=== PATIENT | female | born 2000 | race Caucasian/White ===

== ENCOUNTER 2021-07-23 19:20 | Emergency (ER) | payer MEDICAID ==
[~2021-07-23] VITALS: Ht 162.5 cm; Wt 85.9 kg
[2021-07-23] MEDS ORDERED: ONDANSETRON 4 MG/2 ML (SDV) Z0FRAN IVP ONE ×2 (19:30→20:45)
[2021-07-23] MEDS ORDERED: NS IV 1000 ML 1,000 ML IV SCH (19:30)
[2021-07-23 20:09] LABS: BILIRUBIN,URINE NEGATIVE (NEGATIVE); CLARITY,URINE CLOUDY; COLOR,URINE YELLOW; GLUCOSE, URINE (UA) NEGATIVE (NEGATIVE); KETONES,URINE NEGATIVE (NEGATIVE); LEUKOCYTE ESTERASE ,URINE NEGATIVE (NEGATIVE); NITRITE,URINE NEGATIVE (NEGATIVE); PH,URINE 5.5 (5-9); PROTEIN,URINE 1+ (NEGATIVE)
[2021-07-23 20:15] LABS: BASOPHILS % (AUTO) 1 % (0-10); EOSINOPHILS % (AUTO) 0 % (0-10); HEMATOCRIT 49 % (35-52); HEMOGLOBIN 16.4 g/dL (11.5-16.0); LYMPHOCYTES % (AUTO) 32 % (12-44); MEAN CORPUSCULAR HEMOGLOBIN 30 pg (25-34); MEAN CORPUSCULAR HGB CONC 33 g/dL (32-36); MEAN CORPUSCULAR VOLUME 89 fL (80-99); MEAN PLATELET VOLUME 10.3 fL (9.0-12.2); MONOCYTES % (AUTO) 12 % (0-12); NEUTROPHILS % (AUTO) 55 % (42-75); PLATELET COUNT 349 10^3/uL (130-400)
[2021-07-23 20:16] LABS: LYMPHOCYTES # (AUTO) 1.9 X 10^3 (1.0-4.0); MONOCYTES # (AUTO) 0.7 X 10^3 (0.0-1.0); NEUTROPHILS # (AUTO) 3.3 X 10^3 (1.8-7.8)
[2021-07-23 20:18] LABS: BACTERIA,URINE NEGATIVE /HPF; RBC,URINE RARE /HPF; WBC,URINE RARE /HPF
[2021-07-23 20:19] LABS: AMORPHOUS SEDIMENT,UR LARGE AMOR URATES /LPF
[2021-07-23 20:21] LABS: ALANINE AMINOTRANSFERASE 39 U/L (0-55); ALKALINE PHOSPHATASE 100 U/L (40-136); BILIRUBIN,TOTAL 0.3 MG/DL (0.1-1.0); BUN/CREATININE RATIO 12; CALCIUM 9.8 MG/DL (8.5-10.1); CARBON DIOXIDE 16 MMOL/L (21-32); CHLORIDE 114 MMOL/L (98-107); CREATININE SERUM 0.91 MG/DL (0.60-1.30); GFR ESTIMATED 80; GLUCOSE 99 MG/DL (70-105); POTASSIUM 3.7 MMOL/L (3.6-5.0); SODIUM 146 MMOL/L (135-145)
[2021-07-23 20:22] LABS: ALBUMIN 4.8 GM/DL (3.2-4.5); LIPASE 27 U/L (8-78); TOTAL PROTEIN 8.8 GM/DL (6.4-8.2)
[2021-07-23] MEDS ORDERED: LACTATED RINGERS 1,000 ML IV SCH (20:45)
[2021-07-23] MEDS ORDERED: LOPERAMIDE 2 MG (IMODIUM) TABLET PO ONE (20:45)
--- NOTE | 2021-07-23 21:07 | ED General ---
General Chief Complaint: Abdominal/GI Problems Stated Complaint: N/V/D,DIZZY Nursing Triage Note: Patient states that she has been feeling ill since 07/19/21. Patient has been having nausea/vomiting/diarrhea. Patient went to [facility] on 07/21/21. Patient was tested for Covid and the flu, tested negative for both. Patient was given a prescription for zofran. Patient reports very little relief with the zofran. Patient also reports that she hasn't been urinating normally. Patient report that she has only been able to dribble since she had gotten sick last thursday. History of Present Illness Date Seen by Provider: Jul 23, 2021 Time Seen by Provider: 21:02 Initial Comments Patient presenting to emergency department for evaluation of nausea vomiting diarrhea and feeling lightheaded and she says she has had decreased urine output. Patient says all this happened Thursday night and she has been having the symptoms for the past 3 days. She was seen at an urgent care 2 days ago and started on ODT Zofran which helped initially however she says it is not helping the vomiting at this point. She says the emesis is nonbloody nonbilious and happens at least 5 times a day and the diarrhea is watery and happens at least 10 times a day. She denies any blood in her stool and she also denies any recent antibiotic use foreign travel or chemotherapy. She says she has had no fevers or chills. She did test negative for Covid and influenza on the . She is in no acute distress with normal vital signs other than mild tachycardia. Allergies and Home Medications Allergies Coded Allergies: No Known Drug Allergies (Unverified , 07/23/21) Patient Home Medication List Home Medication List Reviewed: Yes Review of Systems Review of Systems Constitutional: dizziness EENTM: no symptoms reported Respiratory: no symptoms reported Cardiovascular: no symptoms reported Gastrointestinal: diarrhea, nausea, vomiting Genitourinary: decreased output Musculoskeletal: no symptoms reported Skin: no symptoms reported Psychiatric/Neurological: No Symptoms Reported All Other Systems Reviewed Negative Unless Noted: Yes Past Tpzsvhm-Iirypr-Afdzfp Hx Patient Social History Tobacco Use?: No Substance use?: No Alcohol Use?: No Pt feels they are or have been: No Immunizations Up To Date Second COVID19 Vaccination Claude: November COVID19 Vaccine Fitness Coordinator: Modernrichelle Physical Exam Vital Signs Vital Signs - First Documented 07/23/21 19:24 Temp 36.6 Pulse 103 Resp 16 B/P (MAP) 131/98 (109) Pulse Ox 99 O2 Delivery Room Air Capillary Refill : Less Than 3 Seconds Height, Weight, BMI Height: '" Weight: lbs. oz. kg; 32.00 BMI Method: General Appearance: No Apparent Distress, WD/WN HEENT: PERRL/EOMI Neck: Supple Respiratory: Lungs Clear, No Respiratory Distress Cardiovascular: Tachycardia Gastrointestinal: Non Tender, Soft Back: Normal Inspection Extremity: Normal Capillary Refill Neurologic/Psychiatric: Alert, Oriented x3 Skin: Warm/Dry Progress/Results/Core Measures Suspected Sepsis SIRS Temperature: Pulse: 103 Respiratory Rate: 16 Laboratory Tests 07/23/21 19:34: White Blood Count 6.0 Blood Pressure 131 /98 Mean: 109 Laboratory Tests 07/23/21 19:34: Creatinine 0.91, Platelet Count 349, Total Bilirubin 0.3 Results/Orders Lab Results Laboratory Tests Test 07/23/21 19:25 07/23/21 19:34 Range/Units Urine Color YELLOW Urine Clarity CLOUDY Urine pH 5.5 5-9 Urine Specific [place] >=1.030 1.016-1.022 Urine Protein 1+ H NEGATIVE Urine Glucose (UA) NEGATIVE NEGATIVE Urine Ketones NEGATIVE NEGATIVE Urine Nitrite NEGATIVE NEGATIVE Urine Bilirubin NEGATIVE NEGATIVE Urine Urobilinogen 0.2 < = 1.0 MG/DL Urine Leukocyte Esterase NEGATIVE NEGATIVE Urine RBC (Auto) NEGATIVE NEGATIVE Urine RBC RARE /HPF Urine WBC RARE /HPF Urine Squamous Epithelial Cells 5-10 /HPF Urine Crystals PRESENT H /LPF Urine Amorphous Sediment LARGE [place]NE URATES H /LPF Urine Bacteria NEGATIVE /HPF Urine Casts NONE /LPF Urine Mucus SMALL H /LPF Urine Culture Indicated NO Urine Test NEGATIVE NEGATIVE White Blood Count 6.0 4.3-11.0 10^3/uL Red Blood Count 5.55 H 3.80-5.11 10^6/uL Hemoglobin 16.4 H 11.5-16.0 g/dL Hematocrit 49 35-52 % Mean Corpuscular Volume 89 80-99 fL Mean Corpuscular Hemoglobin 30 25-34 pg Mean Corpuscular Hemoglobin Concent 33 32-36 g/dL Red Cell Distribution Width 12.2 10.0-14.5 % Platelet Count 349 130-400 10^3/uL Mean Platelet Volume 10.3 9.0-12.2 fL Neutrophils (%) (Auto) 55 42-75 % Lymphocytes (%) (Auto) 32 12-44 % Monocytes (%) (Auto) 12 0-12 % Eosinophils (%) (Auto) 0 0-10 % Basophils (%) (Auto) 1 0-10 % Neutrophils # (Auto) 3.3 1.8-7.8 X 10^3 Lymphocytes # (Auto) 1.9 1.0-4.0 X 10^3 Monocytes # (Auto) 0.7 0.0-1.0 X 10^3 Eosinophils # (Auto) 0.0 0.0-0.3 10^3/uL Basophils # (Auto) 0.0 0.0-0.1 10^3/uL Sodium Level 146 H 135-145 MMOL/L Potassium Level 3.7 3.6-5.0 MMOL/L Chloride Level 114 H 98-107 MMOL/L Carbon Dioxide Level 16 L 21-32 MMOL/L Anion Gap 16 H 5-14 MMOL/L Blood Urea Nitrogen 11 7-18 MG/DL Creatinine 0.91 0.60-1.30 MG/DL Estimat Glomerular Filtration Rate 80 BUN/Creatinine Ratio 12 Glucose Level 99 70-105 MG/DL Calcium Level 9.8 8.5-10.1 MG/DL Corrected Calcium 8.5-10.1 MG/DL Total Bilirubin 0.3 0.1-1.0 MG/DL Aspartate Amino Transf (AST/SGOT) 30 5-34 U/L Alanine Aminotransferase (ALT/SGPT) 39 0-55 U/L Alkaline Phosphatase 100 40-136 U/L Total Protein 8.8 H 6.4-8.2 GM/DL Albumin 4.8 H 3.2-4.5 GM/DL Lipase 27 8-78 U/L My Orders Orders - RAFIQ LEONARD DO Iv/Invasive Line Insertion .IV start (07/23/21 19:28) Comprehensive Metabolic Panel (07/23/21 19:28) Cbc With Automated Diff (07/23/21 19:28) Lipase (07/23/21 19:28) Ua Culture If Indicated (07/23/21 19:) Hcg,Qualitative Urine (07/23/21 19:) Ondansetron Injection (Zofran Injectio (07/23/21 19:30) Ns Iv 1000 Ml (Sodium Chloride 0.9%) (07/23/21 19:30) C Difficile Ag + Toxin A/B. (07/23/21 19:39) Isolation Central Supply Req (07/23/21 19:39) Parasite Scrn Stool Giard Cryp (07/23/21 19:39) Lactated Ringers (Lr 1000 Ml Iv Solution (07/23/21 20:45) Loperamide Tablet (Imodium Tablet) (07/23/21 20:45) Ondansetron Injection (Zofran Injectio (07/23/21 20:45) Medications Given in ED Current Medications Medications Dose Ordered Sig/Crystal Route Start Time Stop Time Status Last Admin Dose Admin Loperamide HCl 4 mg ONCE ONCE PO 07/23/21 20:45 07/23/21 20:46 DC 07/23/21 20:53 4 MG Ondansetron HCl 4 mg ONCE ONCE IVP 07/23/21 19:30 07/23/21 19:31 DC 07/23/21 19:40 4 MG Ondansetron HCl 4 mg ONCE ONCE IVP 07/23/21 20:45 07/23/21 20:46 DC 07/23/21 20:53 4 MG Vital Signs/I&O 07/23/21 19:24 Temp 36.6 Pulse 103 Resp 16 B/P (MAP) 131/98 (109) Pulse Ox 99 O2 Delivery Room Air Capillary Refill : Less Than 3 Seconds Blood Pressure Mean: 109 Progress Note : Progress Note Patient does have signs of dehydration based off her chemistry panel as she has decreased CO2 and increased anion gap. Her white blood cell count is normal and she has benign initial and repeat abdominal exams and I do not suspect surgical abdomen or surgical causes such as appendicitis. Her heart rate improved to 80 after IV fluids and she says her nausea is resolved and she was able to drink apple juice with no difficulty. She was able to provide stool sample so this will be sent to [facility] for further testing. Given she appears well with normal vital signs benign physical exam work-up she will be discharged with Phenergan for her nausea in addition to Imodium for her diarrhea told to follow with a primary care provider within 2 to 3 days for recheck and come back to emergency department sooner with worsening pain fevers vomiting or other general concerns. Patient aware and agreeable with plan and verbalized understanding the above instructions. Departure Impression Primary Impression: Nausea and vomiting Qualified Codes: R11.2 - Nausea with vomiting, unspecified Additional Impressions: Diarrhea Qualified Codes: R19.7 - Diarrhea, unspecified Dehydration Disposition: 01 HOME, SELF-CARE Condition: Stable Departure-Patient Inst. Referrals: MARIA EUGEINA WINTER MD (PCP/Family) Primary Care Physician Patient Instructions: Viral Gastroenteritis, Adult (DC) Add. Discharge Instructions: Drink plenty of fluids. Tylenol and ibuprofen for pain. Follow with PCP later this week for recheck. Come back with any concerns. Thank you! All discharge instructions reviewed with patient and/or family. Voiced understanding. Scripts Promethazine HCl (Promethazine Suppository) 25 Mg Supp.rect 25 MG RC Q6H PRN for NAUSEA/VOMITING-2ND LINE, #14 SUPP.RECT Prov: RAFIQ LEONARD DO 07/23/21 Promethazine HCl (Promethazine Tablet) 25 Mg Tablet 25 MG PO Q6H PRN for NAUSEA/VOMITING, #14 TAB Prov: RAFIQ LEONARD DO 07/23/21 Loperamide HCl (Loperamide) 2 Mg Tablet 2 MG PO Q6H PRN for DIARRHEA, #14 TAB Prov: RAFIQ LEONARD DO 07/23/21 RAFIQ LEONARD DO Jul 23, 2021 21:07
[2021-07-23] MEDS ORDERED: PROM25SU44 RC (21:09)
[2021-07-23] MEDS ORDERED: LOPE2TAB34 PO (21:09)
[2021-07-23] MEDS ORDERED: PROM25TA14 PO (21:09)
[2021-07-23 21:22] VITALS: BP 124/92
== END 2021-07-23 21:22 | disposition home or self-care (01) ==
LOC: ER FS 19:21
DX: R11.2 Nausea with vomiting, unspecified (principal); R19.7 Diarrhea, unspecified; E86.0 Dehydration; R00.0 Tachycardia, unspecified
CPT/HCPCS: 36415; 80053; 81000; 83690; 84703; 85025; 87324; 87328; 87329; 87449

== ENCOUNTER 2021-09-18 17:00 | Emergency (ER) | payer MEDICAID ==
[~2021-09-18] VITALS: Ht 162 cm; Wt 85.0 kg
[~2021-09-18 17:00] MED LIST: LOPE2TAB34 PO; PROM25SU44 RC; PROM25TA14 PO
[2021-09-18] MEDS ORDERED: KETOROLAC 30 MG/ML VIAL IVP STA (17:19)
--- NOTE | 2021-09-18 17:29 | ED General ---
General Chief Complaint: Fever-Adult/Adol Stated Complaint: HEADACHE,NAUSEA,BODY ACHES,DIZZINESS,CHILLS Source of Information: Patient History of Present Illness Date Seen by Provider: Sep 18, 2021 Time Seen by Provider: 17:06 Initial Comments 21-year-old female presenting with complaints of fever, cough, headache, chills, shortness of breath since Thursday. She took a home test for COVID that was negative. She has not taken anything for pain or fever. She was at work on Thursday at [employer] when her symptoms started. She started with just a headache on Thursday and then proceeded to get fever chills, cough, shortness of breath on Thursday. She did get a Depo-Provera shot on Thursday. She presents to the emergency department today because she has been sleeping most of the day and was feeling dizzy and lightheaded when she stood up. She denies having any nausea, vomiting, diarrhea, pain with urination, blood in her urine, change in her vision, sore throat, abdominal pain. She has no definite ill contact but works at [employer] so is around public and Covid and Influenza have both been prominent in the community recently. Timing/Duration: 2-3 Days Severity: Moderate Modifying Factors: improves with Rest (helps some and been sleeping most of today) Associated Systoms: No Chest Pain; Cough; No Diaphoresis; Fever/Chills, Headaches, Loss of Appetite, Malaise; No Nausea/Vomiting, No Rash, No Seizure; Shortness of Air; No Syncope; Weakness (generalized weakness) Allergies and Home Medications Allergies Coded Allergies: No Known Drug Allergies (Unverified , 07/23/21) Patient Home Medication List Home Medication List Reviewed: Yes Loperamide HCl (Loperamide) 2 Mg Tablet, 2 MG PO Q6H PRN for DIARRHEA Prescribed by: RAFIQ LEONARD on 07/23/212108 Promethazine HCl (Promethazine Tablet) 25 Mg Tablet, 25 MG PO Q6H PRN for NAUSEA/VOMITING Prescribed by: RAFIQ LEONARD on 07/23/212108 Promethazine HCl (Promethazine Suppository) 25 Mg Supp.rect, 25 MG RC Q6H PRN for NAUSEA/VOMITING-2ND LINE Prescribed by: RAFIQ LEONARD on 11/23/21 2109 Review of Systems Review of Systems Constitutional: see HPI EENTM: nose congestion; No epistaxis, No throat pain Respiratory: see HPI, cough; No hemoptysis; short of breath; No stridor, No wheezing Cardiovascular: No chest pain; palpitations Gastrointestinal: No constipation, No diarrhea, No nausea, No vomiting Genitourinary: No dysuria, No frequency : No Musculoskeletal: muscle pain (generalized body aches) Skin: No rash Psychiatric/Neurological: Headache Hematologic/Lymphatic: Denies Blood Clots Past Vdelcki-Dffbal-Sanpaj Hx Patient Social History Tobacco Use?: No Use of E-Cig and/or Vaping dev: No Substance use?: No Alcohol Use?: No Immunizations Up To Date Second COVID19 Vaccination Claude: November Past Medical History Surgeries: No Respiratory: No Cardiac: No Neurological: No : No Genitourinary: No Gastrointestinal: No Musculoskeletal: No Endocrine: No HEENT: No Cancer: No Psychosocial: No Physical Exam Vital Signs Vital Signs - First Documented 09/18/21 17:16 Temp 36.2 Pulse 124 Resp 18 B/P (MAP) 125/84 (98) O2 Delivery Room Air Capillary Refill : Height, Weight, BMI Height: '" Weight: lbs. oz. kg; 32.00 BMI Method: General Appearance: No Apparent Distress, WD/WN HEENT: PERRL/EOMI, Normal ENT Inspection; No Moist Mucous Membranes (slightly dry mucous membranes) Neck: Full Range of Motion, Normal Inspection, Non Tender, Supple Respiratory: Chest Non Tender, Lungs Clear, Normal Breath Sounds, No Accessory Muscle Use, No Respiratory Distress Cardiovascular: Normal Peripheral Pulses, Tachycardia Gastrointestinal: Normal Bowel Sounds, No Pulsatile Mass, Non Tender, Soft Rectal: Deferred Extremity: Normal Capillary Refill, Normal Inspection, No Calf Tenderness, No Pedal Edema Neurologic/Psychiatric: Alert, Oriented x3, curriculum development manager II-XII Norm as Tested Skin: Normal Color, Warm/Dry Focused Exam Lactate Level 09/18/21 17:40: Lactic Acid Level 1.41 Lactic Acid Level Laboratory Tests Test 09/18/21 17:40 Lactic Acid Level 1.41 MMOL/L (0.50-2.00) Progress/Results/Core Measures Suspected Sepsis SIRS Temperature: Pulse: 124 Respiratory Rate: 18 Laboratory Tests 09/18/21 17:13: White Blood Count 2.8L Blood Pressure 125 /84 Mean: 98 1/19/22 17:40: Lactic Acid Level 1.41 Laboratory Tests 09/18/21 17:13: Creatinine 0.74, INR Comment 0.9, Platelet Count 204, Total Bilirubin 0.3 Results/Orders Lab Results Laboratory Tests Test 09/18/21 17:13 09/18/21 17:40 Range/Units White Blood Count 2.8 L 4.3-11.0 10^3/uL Red Blood Count 5.15 H 3.80-5.11 10^6/uL Hemoglobin 14.9 11.5-16.0 g/dL Hematocrit 45 35-52 % Mean Corpuscular Volume 88 80-99 fL Mean Corpuscular Hemoglobin 29 25-34 pg Mean Corpuscular Hemoglobin Concent 33 32-36 g/dL Red Cell Distribution Width 12.9 10.0-14.5 % Platelet Count 204 130-400 10^3/uL Mean Platelet Volume 11.0 9.0-12.2 fL Neutrophils (%) (Auto) 64 42-75 % Lymphocytes (%) (Auto) 17 12-44 % Monocytes (%) (Auto) 18 H 0-12 % Eosinophils (%) (Auto) 0 0-10 % Basophils (%) (Auto) 1 0-10 % Neutrophils # (Auto) 1.8 1.8-7.8 X 10^3 Lymphocytes # (Auto) 0.5 L 1.0-4.0 X 10^3 Monocytes # (Auto) 0.5 0.0-1.0 X 10^3 Eosinophils # (Auto) 0.0 0.0-0.3 10^3/uL Basophils # (Auto) 0.0 0.0-0.1 10^3/uL Neutrophils % (Manual) 34 % Lymphocytes % (Manual) 4 % Monocytes % (Manual) 20 % Eosinophils % (Manual) 0 % Basophils % (Manual) 0 % Band Neutrophils 34 % Atypical Lymphocytes 8 % Platelet Estimate NORMAL Blood Morphology Comment NORMAL Prothrombin Time 12.9 12.2-14.7 SEC INR Comment 0.9 0.8-1.4 Activated Partial Thromboplast Time 35 24-35 SEC Sodium Level 138 135-145 MMOL/L Potassium Level 3.7 3.6-5.0 MMOL/L Chloride Level 103 98-107 MMOL/L Carbon Dioxide Level 20 L 21-32 MMOL/L Anion Gap 15 H 5-14 MMOL/L Blood Urea Nitrogen 10 7-18 MG/DL Creatinine 0.74 0.60-1.30 MG/DL Estimat Glomerular Filtration Rate 119 BUN/Creatinine Ratio 14 Glucose Level 110 H 70-105 MG/DL Calcium Level 9.0 8.5-10.1 MG/DL Corrected Calcium 8.5-10.1 MG/DL Total Bilirubin 0.3 0.1-1.0 MG/DL Aspartate Amino Transf (AST/SGOT) 25 5-34 U/L Alanine Aminotransferase (ALT/SGPT) 23 0-55 U/L Alkaline Phosphatase 103 40-136 U/L Troponin I < 0.30 <0.30 NG/ML C-Reactive Protein 0.44 <0.50 MG/DL Total Protein 7.8 6.4-8.2 GM/DL Albumin 4.6 H 3.2-4.5 GM/DL Serum Test, Qualitative NEGATIVE NEGATIVE Influenza Type A Antigen NEGATIVE NEGATIVE Influenza Type B Antigen NEGATIVE NEGATIVE Lactic Acid Level 1.41 0.50-2.00 MMOL/L My Orders Orders - SOPHIA THOMPSON MD Monitor-Rhythm Ecg Trace Only (09/18/21 17:19) Ed Iv/Invasive Line Start (09/18/21 17:19) Cbc With Automated Diff (09/18/21 17:19) Comprehensive Metabolic Panel (09/18/21 17:19) Crp Fs (09/18/21 17:19) Troponin I Fs (09/18/21 17:19) Protime With Inr (09/18/21 17:19) Partial Thromboplastin Time (09/18/21 17:19) Ekg Tracing (09/18/21 17:19) Ns Iv 1000 Ml (Sodium Chloride 0.9%) (09/18/21 17:30) Acetaminophen Tablet/Caplet (Tylenol T (09/18/21 17:30) Ketorolac Injection (Toradol Injection) (09/18/21 17:19) Blood Culture (09/18/21 17:19) Chest 1 View Ap/Pa Only (09/18/21 17:19) Hcg,Qualitative Serum (09/18/21 17:19) Influenza A & B Antigens (09/18/21 17:19) Coronavirus Sars-Cov-2 So 2018 (09/18/21 17:19) Lactic Acid Analyzer (09/18/21 17:19) Ketorolac Injection (Toradol Injection) (09/18/21 17:33) Manual Differential (09/18/21 17:13) Orthostatic Vital Signs (Adult (09/18/21 18:34) Medications Given in ED Current Medications Medications Dose Ordered Sig/Crystal Route Start Time Stop Time Status Last Admin Dose Admin Acetaminophen 650 mg ONCE ONCE PO 09/18/21 17:30 09/18/21 17:31 DC 09/18/21 17:41 650 MG Vital Signs/I&O 09/18/21 09/18/21 17:16 18:43 Temp 36.2 Pulse 124 93 Resp 18 B/P (MAP) 125/84 (98) 120/72 (88) O2 Delivery Room Air Capillary Refill : Blood Pressure Mean: 98 Progress Note #1: Progress Note Obtain labs and blood cultures and lactic acid. Chest x-ray to look for pneumonia. Give IV fluids for hydration and tachycardia. Toradol for body aches and headache. Acetaminophen for fever and body aches. Check urinalysis to look at hydration status. Send swab for influenza and send out COVID test. Counseled patient that she would not have the COVID results for at least a day or 2 and she would need to be on quarantine until those results were back and she was not having symptoms. Differential diagnosis includes pneumonia, sinusitis, COVID, influenza, sepsis, dehydration, upper respiratory infection Progress Note #2: Progress Note No acute findings on the chest x-ray. She has sinus tachycardia on the electrocardiogram. Her CBC shows a low white blood cell count to go along with viral illness and she does have elevated monocytes and bands. Chemistry shows negative lactic acid and general electrolytes, kidney function, liver enzymes looked okay. She had elevated CRP. Her cardiac enzymes were negative. Her coags were normal. Her heart rate improved with hydration. She stated that she urinated just prior to coming to the emergency department and has not had to urinate here in the ED. Her influenza was negative and COVID is pending and will take a day or 2 to come back. Progress Note #3: Progress Note Orthostatic vitals stable with mild tachycardia but improved from arrival. Pt denies dizziness. Discharge to home to push fluids and rest. Quarantine until results are back for Covid or symptoms have resolved and no fever for 24 hours without having to take medicines. ECG Initial ECG Impression Date: Sep 18, 2021 Initial ECG Impression Time: 17:42 Initial ECG Rate: 107 Initial ECG Rhythm: S.Tach Initial ECG Comparisson: No Previous ECG Available Comment Sinus tachycardia with a heart rate of 107 bpm. PVCs are present. Low voltage precordial leads. No acute ST elevation. MO interval 137 ms. QT interval 344 ms with a QTc interval 459 ms. No prior tracing available for comparison. Diagnostic Imaging Diagonstic Imaging: Xray Plain Films/CT/US/NM/MRI: chest Comments NAME: BHAVIK VARELA [facility] REC#: [id number] PT STATUS: REG ER : 2001 PHYSICIAN: SOPHIA THOMPSON MD ADMIT DATE: 09/18/21/ER FS Draft Date of Exam:09/18/21 CHEST 1 VIEW AP/PA ONLY INDICATION: Cough. COMPARISON: None. EXAMINATION: Single view of the chest. FINDINGS: Clear lungs, bilaterally. The heart is normal. There is no pneumothorax but osseous structures are normal. IMPRESSION: Negative chest. Dictated on workstation # [id number] Dict: 09/18/21 1739 Trans: 09/18/21 1745 [facility] [id number] Interpreted by: LEONIDES ROSA Electronically signed by: Reviewed: Reviewed by Me Departure Impression Primary Impression: Person under investigation for severe acute respiratory syndrome coronavirus 2 (SARS-CoV-2) infection Additional Impressions: Dehydration Tachycardia Headache Qualified Codes: R51.9 - Headache, unspecified Disposition: 01 HOME, SELF-CARE Condition: Stable Departure-Patient Inst. Decision time for Depature: 18:42 Referrals: MARIA EUGENIA WINTER MD (PCP/Family) Primary Care Physician Patient Instructions: Dehydration, Adult ED, Headache, Adult ED, COVID-19 ED, COVID-19 Tests Add. Discharge Instructions: Drink more fluids and stay well hydrated. Use acetaminophen and ibuprofen as needed to help with fever over 101 F, headache and body aches. You should quarantine for the next 10 days or until your symptoms have resolved and you do not have to take any medicine to control fever for over 24 hours. You will get a call with Covid result, but it will take at least 1-2 days to come back. Follor up with clinic for continued problems/concerns. All discharge instructions reviewed with patient and/or family. Voiced underst anding. Work/School Note: Work Release Form Date Seen in the Emergency Department: J an 2021 Return to Work: Sep 27, 2021 Restrictions: Return-No Fever (24hrs) Other Restrictions Listed Below: Quarantine until , or Neg Covid, no [id number] hours without meds SOPHIA THOMPSON MD Sep 18, 2021 17:29
[2021-09-18] MEDS ORDERED: ACETAMINOPHEN 325 MG TABLET PO ONE (17:30)
[2021-09-18] MEDS ORDERED: NS IV 1000 ML 1,000 ML IV SCH (17:30)
[2021-09-18] MEDS ORDERED: KETOROLAC 15 MG/ML VIAL ONE (17:33)
--- NOTE | 2021-09-18 17:46 | Diagnostic Imaging Report ---
INDICATION: Cough. COMPARISON: None. EXAMINATION: Single view of the chest. FINDINGS: Clear lungs, bilaterally. The heart is normal. There is no pneumothorax but osseous structures are normal. IMPRESSION: Negative chest. Dictated by: Dictated on workstation # [id number]
[2021-09-18 17:59] LABS: INR 0.9 (0.8-1.4); PROTHROMBIN TIME PATIENT 12.9 SEC (12.2-14.7)
[2021-09-18 18:04] LABS: ALANINE AMINOTRANSFERASE 23 U/L (0-55); ALBUMIN 4.6 GM/DL (3.2-4.5); ALKALINE PHOSPHATASE 103 U/L (40-136); BILIRUBIN,TOTAL 0.3 MG/DL (0.1-1.0); BUN/CREATININE RATIO 14; CARBON DIOXIDE 20 MMOL/L (21-32); CHLORIDE 103 MMOL/L (98-107); CREATININE SERUM 0.74 MG/DL (0.60-1.30); GFR ESTIMATED 119; GLUCOSE 110 MG/DL (70-105); POTASSIUM 3.7 MMOL/L (3.6-5.0); SODIUM 138 MMOL/L (135-145); TOTAL PROTEIN 7.8 GM/DL (6.4-8.2)
[2021-09-18 18:06] LABS: BASOPHILS % (AUTO) 1 % (0-10); EOSINOPHILS % (AUTO) 0 % (0-10); HEMATOCRIT 45 % (35-52); HEMOGLOBIN 14.9 g/dL (11.5-16.0); LYMPHOCYTES # (AUTO) 0.5 X 10^3 (1.0-4.0); LYMPHOCYTES % (AUTO) 17 % (12-44); MEAN CORPUSCULAR HEMOGLOBIN 29 pg (25-34); MEAN CORPUSCULAR HGB CONC 33 g/dL (32-36); MEAN CORPUSCULAR VOLUME 88 fL (80-99); MONOCYTES # (AUTO) 0.5 X 10^3 (0.0-1.0); MONOCYTES % (AUTO) 18 % (0-12); NEUTROPHILS # (AUTO) 1.8 X 10^3 (1.8-7.8); NEUTROPHILS % (AUTO) 64 % (42-75); PLATELET COUNT 204 10^3/uL (130-400); WHITE BLOOD COUNT 2.8 10^3/uL (4.3-11.0)
[2021-09-18 18:22] LABS: ATYPICAL LYMPHOCYTES 8 %; BAND NEUTROPHILS 34 %; BASOPHILS % (MANUAL) 0 %; EOSINOPHILS % (MANUAL) 0 %; LYMPHOCYTES % (MANUAL) 4 %; MONOCYTES % (MANUAL) 20 %; NEUTROPHILS % (MANUAL) 34 %; PLATELET ESTIMATE NORMAL; RBC MORPH NORMAL
[2021-09-18 18:43] VITALS: BP 120/72
== END 2021-09-18 18:50 | disposition home or self-care (01) ==
LOC: EDUNIT# 17:00 → ER FS 17:02
DX: E86.0 Dehydration (principal); R00.0 Tachycardia, unspecified; R51.9 Headache, unspecified; Z20.822 Contact with and (suspected) exposure to COVID-19
CPT/HCPCS: 36415; 71045; 80053; 83605; 84484; 84703; 85007; 85027; 85610; 85730; 86141; 87040; 87635; 87804; 93005

== ENCOUNTER 2023-07-13 02:51 | Emergency (ER) | payer MEDICAID, OTHER ==
[~2023-07-13] VITALS: Ht 162.5 cm; Wt 96.7 kg
[2023-07-13 02:55] VITALS: BP 159/95
--- NOTE | 2023-07-13 03:19 | ED EENT ---
History of Present Illness General Chief Complaint: Oral/Throat Problems Stated Complaint: MOUTH INJ|PAIN Source: patient Exam Limitations: no limitations History of Present Illness Date Seen by Provider: Jul 13, 2023 Time Seen by Provider: 03:05 Initial Comments 22-year-old female presents to the emergency department today for tongue swelling secondary to 3 piercings that she has. She has had them for about a year. On Thursday she started to have a headache and then on Thursday noticed some tongue swelling, especially on the right side. She states that one of her piercings is "swallowed" by her tongue and she cannot get it out. She denies any fevers chills, difficulty breathing or speaking, swallowing. All other systems reviewed and negative except documented per HPI. Voice recognition software was used to help create this chart Allergies and Home Medications Allergies Coded Allergies: No Known Drug Allergies (Unverified , 07/23/21) Patient Home Medication List Home Medication List Reviewed: Yes Loperamide HCl (Loperamide) 2 Mg Tablet, 2 MG PO Q6H PRN for DIARRHEA Prescribed by: RAFIQ LEONARD on 07/23/212108 Promethazine HCl (Promethazine Tablet) 25 Mg Tablet, 25 MG PO Q6H PRN for NAUSEA/VOMITING Prescribed by: RAFIQ LEONARD on 07/23/212108 Promethazine HCl (Promethazine Suppository) 25 Mg Supp.rect, 25 MG RC Q6H PRN for NAUSEA/VOMITING-2ND LINE Prescribed by: RAFIQ LEONARD on 07/23/212108 Review of Systems Review of Systems Constitutional: see HPI Past [id number] Hx Patient Social History Tobacco Use?: No Substance use?: No Alcohol Use?: Yes Alcohol Frequency: Once in a while Immunizations Up To Date First/Initial COVID19 Vaccinat: November Second COVID19 Vaccination Claude: November COVID19 Vaccine [employer]bin Winder: Mfaura? Past Medical History Surgery/Hospitalization HX: T&A, [place] teeth extraction Surgeries: No Respiratory: No Cardiac: No Neurological: No Genitourinary: No Gastrointestinal: No Musculoskeletal: No Endocrine: No HEENT: No Cancer: No Psychosocial: No Physical Exam Height, Weight, BMI Height: '" Weight: lbs. oz. kg; 32.00 BMI Method: General Appearance: WD/WN, no apparent distress Nose: normal inspection Mouth/Throat: other (Right side of her tongue is slightly swollen. She has 3 piercings that are through and through. That top portion of the piercing on her right side is not visible secondary to swelling. Uvula is midline.) Neurologic/Psychiatric: alert, oriented x 3 Skin: normal color, warm/dry Departure Communication (Admissions) I advised the patient that the procedure would likely be uncomfortable. I was attempting to grab the top of the piercing with a hemostat in order to stabilize it so that I could unscrew the bottom most portion and the patient said "uh uh" and grabbed my hand and moved it away. I did apologize but stated really that this was the only way to help her symptoms. She requested oral pain medication but I advised her that this would likely not work for about an hour and would likely not help with this type of pain in any way. I did offer her shots to attempt to numb and she declined. I advised that this piercing needed to come out and she stated "you are being a oswald." Advised that did not understand what she meant. She states that every other time she has been here she is got something for pain. I again advised that conventional pain control would not really help with this short procedure. She declined the procedure any further in stormed out of the room stating that I was being rude. I advised her that I was not trying to be rude at all, just trying to be realistic about the nature of the procedure. She continued to yell and stormed out of the building. Impression Primary Impression: Mild tongue swelling Additional Impression: Stud piercing of tongue Disposition: 01 HOME, SELF-CARE Condition: Stable Departure-Patient Inst. Referrals: SELF,MARIA EUGENIA ALEJO (PCP/Family) Primary Care Physician Patient Instructions: Oral Piercings TIENTRU Fransico RAYO Jul 13, 2023 03:19
== END 2023-07-13 03:13 | disposition left against medical advice (07) ==
LOC: EDUNIT# 02:51 → ER FS 02:53
DX: T18.0XXA Foreign body in mouth, initial encounter (principal)
CPT/HCPCS: 99281